=== PATIENT | male | born 1990 | race Caucasian/White ===

== ENCOUNTER 2018-02-21 08:34 | Emergency (ER) | payer OTHER, BC ==
--- NOTE | 2018-02-21 09:28 | EDM.PDOC ---
ED HPI GENERAL MEDICAL PROBLEM - General Chief Complaint: Eye Problems Stated Complaint: FB IN EYE Time Seen by Provider: 02/21/18 09:05 Source of Information: Reports: Patient, RN Notes Reviewed - History of Present Illness INITIAL COMMENTS - FREE TEXT/NARRATIVE: 27-year-old male with foreign body sensation left eye. This started getting irritated yesterday, became more irritated last evening and through the night. He continues with left eye foreign body sensation and irritation feeling this morning. He and his have been able to see a small dark spot on the lateral aspect of the cornea. They have tried to remove it with a Q-tip but unable to do so. He does not wear contacts. Does work as a oil field equipment mechanic. He did do some grinding a few days ago, does not remember acute onset of pain then or at any time since then Left Eye Pain Score (Numeric/FACES): 5 - Related Data Allergies Allergy/AdvReac Type Severity Reaction Status Date / Time Penicillins Allergy Cannot Verified 02/21/18 08:47 Remember Sulfa (Sulfonamide Allergy Hives Verified 02/21/18 08:47 Antibiotics) Home Meds: Home Meds Erythromycin Base [Erythromycin 0.5% Ophth Oint] 1 applic OP TID #1 tube [Rx] Escitalopram [Lexapro] 20 mg PO DAILY 02/21/18 [History] Past Medical History Psychiatric History: Reports: Anxiety, Depression Social & Family History - Tobacco Use Smoking Status *Q: Never Smoker - Caffeine Use Caffeine Use: Reports: Coffee, Energy Drinks - Recreational Drug Use Recreational Drug Use: No ED ROS GENERAL - Review of Systems Review Of Systems: See Below Constitutional: Denies: Fever, Chills HEENT: Reports: Eye Pain (Foreign body sensation left eye) Respiratory: Denies: Shortness of Breath GI/Abdominal: Denies: Nausea, Vomiting Musculoskeletal: Reports: No Symptoms Skin: Denies: Rash Neurological: Reports: Other (No visual difficulty). Denies: Headache, Numbness , Tingling ED EXAM GENERAL W FULL EYE - Physical Exam Exam: See Below General Appearance: Alert, No Apparent Distress Eye Exam: Bilateral Eye: PERRL Conjunctiva & Sclera: Left: Injected (Mild) Cornea Exam: Left: Foreign Body (Left lateral aspect of cornea) Pupillary Reaction: Bilateral: Brisk Anterior Chamber: Bilateral: Normal Appearance Throat/Mouth: Normal Inspection Head: Atraumatic Neck: Supple Respiratory/Chest: No Respiratory Distress Skin Exam: Warm, Dry, Normal Color ED EYE w/ Add Procedure - Eye Procedure Alcaine Drops Administered: Yes Eye FB Removal: Removal w/ Needle Progress: Very small rust ring present, I did remove that as well, this and foreign body removal well tolerated. Course - Vital Signs Last Recorded V/S: Last Vital Signs Temp 98 F 02/21/18 08:48 Pulse 101 H 02/21/18 08:48 Resp 16 02/21/18 08:48 BP 126/83 02/21/18 08:48 Pulse Ox 95 02/21/18 08:48 Departure - Departure Time of Disposition: 09:25 Disposition: Home, Self-Care 01 Condition: Fair Clinical Impression: Foreign body in cornea, left eye, initial encounter - Discharge Information Prescriptions: Erythromycin Base [Erythromycin 0.5% Ophth Oint] 1 applic OP TID #1 tube Instructions: Eye Foreign Body, [id number] Referrals: PCP,None [Primary Care Provider] - Forms: ED Department Discharge Additional Instructions: alternate tylenol and ibprofen as needed for discomfort, erythromycin antibiotic ointment, small amount to L eye 3 times daily for 3 days. wear eye patch as needed today, tomorrow for discomfort. Your eye should be getting back to normal within 2 to 3 days, follow up with your eye Dr if not completely back to normal by Sunday as expected.
== END 2018-02-21 09:49 | disposition home or self-care (01) ==
LOC: JD.ED 08:34
DX: T15.02XA Foreign body in cornea, left eye, initial encounter (principal); Z88.0 Allergy status to penicillin; Z88.2 Allergy status to sulfonamides; Z79.899 Other long term (current) drug therapy
CPT/HCPCS: 65220; 99283-25